=== PATIENT | male | born 1980 | race Hispanic/Latino ===

== ENCOUNTER 2020-05-12 09:29 | Emergency (ER) | payer SELFPAY ==
[~2020-05-12] VITALS: Ht 167.6 cm; Wt 78.9 kg
[2020-05-12] MEDS ORDERED: DEXAMETHASONE SOD PHOS 10 MG/1 ML VIAL IM ONE (09:45)
--- NOTE | 2020-05-12 09:47 | Emergency Department Note ---
History of Present Illnes History of Present Illness Chief Complaint: General Medicine Complaints History of Present Illness This is a 39 year old male PATIENT IN FROM HOME WITH COMPLAINTS OF RASH FROM POISON YAZ STARTING SATURDAY; PATIENT WITH RASH NOTED TO ARMS AND FACE. ALSO STATES HE HAS IT ON HIS GENITALS. STATES HAS TRIED BENADRYL AND TOPICAL CORTISONE BUT IT IS NOT HELPING. Historian: Patient, Family Member Arrival Mode: Car Final Cleaner Required: No Onset (how long ago): day(s) (5) Location: SKIN - ARMS, FACE, GENITALS Quality: ITCHY Radiation: Reports non-radiation Severity: moderate Onset quality: gradual Duration (how long): day(s) (5) Timing of current episode: constant Progression: worsening Chronicity: new Context: Denies recent illness Relieving factors: none Exacerbating factors: none Associated symptoms: Reports denies other symptoms Treatments prior to arrival: none Past Medical/Family History Physician Review I have reviewed the patient's past medical and family history. Any updates have been documented here. Past Medical History Recent Fever: No Clinical Suspicion of Infectio: No New/Unexplained Change in Ment: No Past Medical History: None Past Surgical History: None Social History Smoking Cessation: Never Smoker Counseling Performed: No Alcohol Use: Occasional Any Illegal Drug Use: No TB Exposure/Symptoms: No Physically hurt or threatened: No Family History Family history of heart diseas: No Other Last Tetanus: UNKNOWN Any Pre-Existing Lines (PICC,: No Review of Systems Review of Systems Constitutional: Reports no symptoms EENTM: Reports no symptoms Cardiovascular: Reports no symptoms Respiratory: Reports no symptoms Gastrointestinal: Reports no symptoms Genitourinary: Reports no symptoms Musculoskeletal: Reports no symptoms Integumentary: Reports rash Neurological: Reports no symptoms Psychological: Reports no symptoms Endocrine: Reports no symptoms Hematological/Lymphatic: Reports no symptoms Physical Exam Related Data Allergies: Coded Allergies: No Known Allergies (Unverified , 05/12/20) Triage Vital Signs Vital Signs Date Time Temp Pulse Resp B/P (MAP) Pulse Ox O2 Delivery O2 Flow Rate FiO2 05/12/20 09:33 98.1 95 16 134/84 97 Physical Exam CONSTITUTIONAL Constitutional: Reports well-developed, Reports well-nourished HENT HENT: Reports normocephalic, Reports atraumatic, Reports oropharynx c lear/moist, Reports nose normal HENT L/R: Reports left ext ear normal, Reports right ext ear normal EYES Eyes: Reports PERRL, Reports conjunctivae normal NECK Neck: Reports ROM normal PULMONARY Pulmonary: Reports effort normal, Reports breath sounds normal CARDIOVASCULAR Cardiovascular: Reports regular rhythm, Reports heart sounds normal, Reports capillary refill normal, Reports normal rate GASTROINTESTINAL Abdominal: Reports soft, Reports nontender, Reports bowel sounds normal GENITOURINARY Genitourinary: Reports exam deferred SKIN Skin: Reports warm, Reports dry, Reports other (RASH ON ARMS, BASE OF PENIS) MUSCULOSKELETAL Musculoskeletal: Reports ROM normal NEUROLOGICAL Neurological: Reports alert, Reports oriented x 3, Reports no gross motor or sensory deficits PSYCHOLOGICAL Psychological: Reports mood/affect normal, Reports judgement normal Assessment & Plan Medical Decision Making [facility] POISON YAZ Reassessment Reassessment DECADRON IM GIVEN DC HOME WITH MEDROL DOSE KEELY, ATARAX, CLOBETASOL 0.05% TID (AVOID FACE) Assessment & Plan Final Impression: (1) Poison yaz Depart Disposition: HOME, SELF-CARE Last Vital Signs Date Time Temp Pulse Resp B/P (MAP) Pulse Ox O2 Delivery O2 Flow Rate FiO2 05/12/20 09:33 98.1 95 16 134/84 97 RADHA NGUYEN MD May 12, 2020 09:47
== END 2020-05-12 10:10 | disposition home or self-care (01) ==
LOC: ER 09:29
DX: L23.7 Allergic contact dermatitis due to plants, except food (principal)
CPT/HCPCS: 99283; J1100